=== PATIENT | male | born 1960 | race American Indian/Alaskan Native ===

== ENCOUNTER 2021-03-18 12:16 | Emergency (ER) | payer BC ==
[2021-03-18 12:29] VITALS: BP 154/106
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
== END 2021-03-18 14:11 | disposition home or self-care (01) ==
LOC: ED 12:16
DX: T14.8XXA Other injury of unspecified body region, initial encounter (principal); M25.561 Pain in right knee; M25.521 Pain in right elbow; R07.9 Chest pain, unspecified; V89.2XXA Person injured in unspecified motor-vehicle accident, traffic, initial encounter; Y93.89 Activity, other specified; Y92.89 Other specified places as the place of occurrence of the external cause; Y99.8 Other external cause status
CPT/HCPCS: 71045; 99283